=== PATIENT | female | born 1990 ===

== ENCOUNTER 2017-09-23 09:34 | Emergency (ER) | payer MEDICAID ==
[2017-09-23 10:10] LABS: BASO % 0.4 % (0.0-2.0); EOS # 0.1 K/uL (0.0-0.7); EOS % 0.9 % (0.0-4.0); HEMOGLOBIN 11.8 g/dL (11.0-16.0); LYMPH # 2.4 K/uL (1.0-4.3); LYMPH % 25.7 % (20.0-40.0); MEAN CELL VOLUME 82.7 fL (81.0-99.0); MEAN CORPUSCULAR HEMOGLOBIN 28.2 pg (27.0-31.0); MEAN CORPUSCULAR HGB CONC 34.1 g/dL (33.0-37.0); MEAN PLATELET VOLUME 8.4 fL (7.2-11.7); MONO # 0.6 K/uL (0.0-0.8); MONO % 6.1 % (0.0-10.0); NEUT # 6.3 K/uL (1.8-7.0); NEUT % 66.9 % (50.0-75.0); RBC 4.18 Mil/uL (3.80-5.20); WHITE BLOOD COUNT 9.4 K/uL (4.8-10.8)
[2017-09-23 10:15] LABS: SQUAMOUS EPITHIAL 15 /hpf (0-5); URINE BILIRUBIN NEGATIVE (NEGATIVE); URINE BLOOD 2+ (NEGATIVE); URINE CLARITY Hazy (Clear); URINE COLOR Yellow (YELLOW); URINE GLUCOSE (UA) NORMAL (Normal); URINE LEUKOCYTE ESTERASE TRACE Leu/uL (Negative); URINE PROTEIN NEGATIVE (NEGATIVE); URINE UROBILINOGEN NORMAL mg/dL (0.2-1.0)
[2017-09-23 10:24] LABS: ALB/GLOB RATIO 1.3 (1.0-2.1); ALBUMIN 4.6 g/dL (3.5-5.0); ALT/SGPT 26 U/L (9-52); AST/SGOT 33 U/L (14-36); BLOOD UREA NITROGEN 9 mg/dL (7-17); GFR AFRICAN-AMERICAN > 60; GFR NON-AFRICAN AMERICAN > 60
[2017-09-23 10:32] LABS: URINE AMORPHOUS SEDIMENT MODERATE /ul (<OCC); URINE BACTERIA OCC (<OCC)
--- NOTE | 2017-09-23 10:45 | C.PDOC ---
History Of Present Illness 26 year old female presents to the ED complaining of vaginal spotting upon awakening this morning. She reports she is 12 weeks and goes to the clinic for pre- care. Patient denies any abdominal pain, dysuria, or any other symptoms. She reports she had a prior miscarriage because of toxoplasmosis. Time Seen by Provider: 09/23/17 09:49 Chief Complaint (Nursing): Female Genitourinary History Per: Patient History/Exam Limitations: no limitations Onset/Duration Of Symptoms: Hrs Current Symptoms Are (Timing): Still Present Associated Symptoms: Urinary Symptoms (Vaginal spotting ). denies: Fever, Nausea, Vomiting, Diarrhea Abnormal Vaginal Bleeding: Yes Last Menstral Period: 07/05/17 Miscarriage: 1 Past Medical History Reviewed: Historical Data, Nursing Documentation, Vital Signs Vital Signs: Last Vital Signs Temp 98.6 F 09/23/17 12:24 Pulse 73 09/23/17 12:24 Resp 18 09/23/17 12:24 BP 101/68 09/23/17 12:24 Pulse Ox 98 09/23/17 12:24 Surgical History: No Surg Hx Family History: States: No Known Family Hx - Social History Hx Alcohol Use: No Hx Substance Use: No - Immunization History Hx Tetanus Toxoid Vaccination: No Hx Influenza Vaccination: No Hx Pneumococcal Vaccination: No Review Of Systems Except As Marked, All Systems Reviewed And Found Negative. Genitourinary: Positive for: Other (Vaginal spotting ) Physical Exam - Physical Exam Appears: Non-toxic, No Acute Distress Skin: Warm, Dry Head: Atraumatic, Normacephalic Eye(s): bilateral: Normal Inspection Nose: Normal Oral Mucosa: Moist Neck: Supple Chest: Symmetrical Cardiovascular: Rhythm Regular, No Murmur Respiratory: Normal Breath Sounds, No Rales, No Rhonchi, No Wheezing Gastrointestinal/Abdominal: Soft, No Tenderness, No Guarding, No Rebound Extremity: Bilateral: Atraumatic, Normal Color And Temperature, Normal ROM Neurological/Psych: Oriented x3, Normal Speech Gait: Steady ED Course And Treatment - Laboratory Results Result Diagrams: 09/23/17 10:06 09/23/17 10:06 O2 Sat by Pulse Oximetry: 100 (RA) Pulse Ox Interpretation: Normal - CT Scan/US US Transvaginal Other Rad Studies (CT/US): Read By Radiologist, Radiology Report Reviewed CT/US Interpretation: Accession No. : [id number]. Patient Name / ID : MONTSERRAT CONTEH / [id number]. Exam Date : 09/23/2017 10:55:08 ( Approved ). Study Comment : Sex / Age : F / 26Y. Creator : Immanuel Singh MD. Dictator : Immanuel Singh MD. Box Bender : Ambulance Driver : Immanuel Singh MD. Approver2 : Report Date : 09/23/2017 11:53:57. My Comment : . Date of service: 09/23/2017. PROCEDURE: OB Pelvic Ultrasound. HISTORY: vaginal bleeding. LMP: 07/06/2017 suggesting gestational age of 11 weeks 2 days. COMPARISON: None available. FINDINGS: UTERUS: Gestational sac: A single viable intrauterine gestation is identified within the gestational sac with a yolk sac identified as well as amniotic membrane. cardiac activity is recorded up to 132 beats per minute. Trace decidual hemorrhage is questioned 8 at the inferior margins of the decidual reaction. Note, the anatomy of the uterus is suspicious for a septate or possible bicornuate uterus with the appreciated toward the right- sided moiety/ endometrial cavity. age (Ultrasound estimated): 6 weeks 4 days based on mean crown-rump length of 0.73 cm. This is discrepant from the patient's LMP derived gestational age 11 weeks 2 days. Teresa-gestational hemorrhage: As above in gestational sac section. Date of delivery (Ultrasound estimated) : 05/17/2018. Uterus measures 7.4 x 4.0 x 6.9 cm. The uterus is anteverted and there is a small mid fundal hypoechoic mass toward the right a few mm separate from the subchorionic/myometrial interface measuring 1.0 x 1.1 x 0.8 cm compatible with a small fibroid. Partial shadowing seen posteriorly. The remainder the myometrium is unremarkable. CERVIX: Measures 3.2 cm. Internal cervical os appears closed. No cervical abnormality seen. RIGHT OVARY : Measures 4.1 x 2.0 x 3.0 cm. No mass lesion. Normal flow. 1.1 x 1.4 x 1.1 cm corpus luteum cyst is seen. LEFT OVARY: Measures 3.0 x 1.3 x 1.7 cm. No solid mass. Normal flow. FREE FLUID: None. OTHER FINDINGS: None. IMPRESSION: 1. A single viable intrauterine gestation is identified with average ultrasonic age of 6 weeks 4 days crit 11 weeks 2 days by dates, indicating discordance between dates. Minimal subchorionic hemorrhage is felt to be present. Clinical correlation follow-up ultrasound is advised. Further, the appears to be within the right side of the endometrial cavity of a septate or bicornuate uterus versus other variant. 2. 1.1 cm fibroid posterior uterine fundus as per above. 3. Right ovarian corpus luteum cyst. Medical Decision Making Medical Decision Making: Impression: Vaginal spotting Plan - Labs - Blood work - US transvaginal 6week 4 day ultrasound. Patient with spotting only. No abd. pain currently. patient will be discharged home to follow up with ob within 2 days Disposition Counseled Patient/Family Regarding: Studies Performed, Diagnosis, Need For Followup - Disposition Referrals: [facility] [Outside] Disposition: HOME/ ROUTINE Disposition Time: 12:03 Condition: STABLE Additional Instructions: follow up with your ob doctor or medical clinic within 2 days call to make an appointment take medications as prescribed return to ER if symptoms worsens or progress Instructions: Threatened Miscarriage (DC) Forms: [facility] (Romanian), General Discharge Instructions - Clinical Impression Clinical Impression: Threatened miscarriage - Scribe Statement The provider has reviewed the documentation as recorded by the Ezibmckinley Negrete All medical record entries made by the Ezibmckinley were at my direction and personally dictated by me. I have reviewed the chart and agree that the record accurately reflects my personal performance of the history, physical exam, medical decision making, and the department course for this patient. I have also personally directed, reviewed, and agree with the discharge instructions and disposition.
--- NOTE | 2017-09-23 11:55 | US ---
Date of service: 09/23/2017 PROCEDURE: OB Pelvic Ultrasound HISTORY: vaginal bleeding LMP: 07/06/2017 suggesting gestational age of 11 weeks 2 days. COMPARISON: None available. FINDINGS: UTERUS: Gestational sac: A single viable intrauterine gestation is identified within the gestational sac with a yolk sac identified as well as amniotic membrane. cardiac activity is recorded up to 132 beats per minute. Trace decidual hemorrhage is questioned 8 at the inferior margins of the decidual reaction. Note, the anatomy of the uterus is suspicious for a septate or possible bicornuate uterus with the appreciated toward the right-sided moiety/ endometrial cavity. age (Ultrasound estimated): 6 weeks 4 days based on mean crown-rump length of 0.73 cm. This is discrepant from the patient's LMP derived gestational age 11 weeks 2 days. Teresa-gestational hemorrhage: As above in gestational sac section. Date of delivery (Ultrasound estimated) : 05/17/2018. Uterus measures 7.4 x 4.0 x 6.9 cm. The uterus is anteverted and there is a small mid fundal hypoechoic mass toward the right a few mm separate from the subchorionic/myometrial interface measuring 1.0 x 1.1 x 0.8 cm compatible with a small fibroid. Partial shadowing seen posteriorly. The remainder the myometrium is unremarkable. CERVIX: Measures 3.2 cm. Internal cervical os appears closed. No cervical abnormality seen. RIGHT OVARY: Measures 4.1 x 2.0 x 3.0 cm. No mass lesion. Normal flow. 1.1 x 1.4 x 1.1 cm corpus luteum cyst is seen. LEFT OVARY: Measures 3.0 x 1.3 x 1.7 cm. No solid mass. Normal flow. FREE FLUID: None. OTHER FINDINGS: None. IMPRESSION: 1. A single viable intrauterine gestation is identified with average ultrasonic age of 6 weeks 4 days crit 11 weeks 2 days by dates, indicating discordance between dates. Minimal subchorionic hemorrhage is felt to be present. Clinical correlation follow-up ultrasound is advised. Further, the appears to be within the right side of the endometrial cavity of a septate or bicornuate uterus versus other variant. 2. 1.1 cm fibroid posterior uterine fundus as per above. 3. Right ovarian corpus luteum cyst.
[2017-09-23 12:25] VITALS: BP 101/68; PULSE 73; RESP 18; TEMP 98.6
[2017-09-23 12:53] VITALS: O2SAT 100
== END 2017-09-23 12:28 | disposition home or self-care (01) ==
LOC: C.ER 09:34
DX: O20.0 Threatened abortion (principal); Z3A.12 12 weeks gestation of pregnancy

== ENCOUNTER 2018-04-06 12:14 | Outpatient (CLI) | payer OTHER | END 2018-04-06 12:15 | disposition home or self-care (01) | LOC: C.LAB 12:14 | DX: Z34.93 Encounter for supervision of normal pregnancy, unspecified, third trimester (principal) ==

== ENCOUNTER 2018-05-03 22:53 | Emergency (ER) | payer OTHER ==
[2018-05-04 00:23] VITALS: BMI 28.6
--- NOTE | 2018-05-04 02:06 | OBHP ---
Datetime: 05/03/2018 23:19 IP Adm Impression: Term, intrauterine ; No Active Labor IP Admit Plan: Discharge home Admit Comment, IP Provider: Patient is a 27 year old at 38w2d YAO 05/15/18 by 12w3d US who pr esents to the unit for suspected rupture of membranes. Patient states that she started leaking fluid at approximately 9:30pm today. She also admits to feeling lower abdominal pressure and back pain that is constant in nature. Patient also states that the baby isnt moving as much for the past 1-2 hours. She denies VB. Last had intercourse earlier today. Issues: Anemia - on Iron 1 tab PO BID and Vitamin C OB Hx: . 2015 SAB at 16 weeks, requiring D+C x 2 2. 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 - 07/05/17 [place] 12 x monthly x 3 days History of ovarian cysts Denies history of fibroids, abnormal pap smears Allergies: NKDA Medications: Vitamin C, Iron 1 tab BID, PNV Medical History: Denies Surgical History: D+C x 2 Social History: Denies alcohol, tobacco, drug use; not employed, Family History: Mother - age 47, healthy; Father - age 57, healthy PE: see above A/P: 27 year old at 38w2d who presents with suspected rupture of membranes -Membranes intact, Not in labor -NST reactive, Category I tracing -Patient admits to feeling movement -Yeast infection: will treat with Diflucan 150mg PO Q72H x 2 -Patient to return tomorrow morning for NST/BPP after breakfast Plan discussed with Dr Brandon Neely DO PGY-2 Attending Note: patient seen and evaluated by me with the Resident. I performed BPP personally. Mj hermosillo is clinically stable. - plan as above. FHR - Baseline A Provider: 135 Membranes, Provider: Intact Contraction Comments Provider: q5-6 min Comments, ACOG Physical Exam: Vital signs BP 135/85 HR 97 Gen: AAOx3, NAD Abdomen: Soft, gravid Extremities: No clubbing, cyanosis, edema Bedside sonogram: BPP 8/8 ((+) FBM; (+)FM; (+) tone; (+) cardiac activity); JOSE 16cm Pool Provider: Negative Nitrazine Provider: Negative IP Hx Assessment: The History has been Reviewed and is Current Vital Signs Provider: Reviewed; Within Normal Limits IP Chief Complaint: Suspected ruptured membranes NICHD Variability Prov Fetus A: Moderate 6-25bpm NICHD Accel Fetus A IP Provider: 15X15 FHR Category Provider Fetus A: Category I NICHD Decel Fetus A IP Provider: None Dilatation, Provider: closed Effacement, Provider: thick Station, Provider: high
[2018-05-04 04:52] VITALS: BP 140/74; PULSE 72; RESP 20; TEMP 97; O2SAT 100
== END 2018-05-04 00:40 | disposition home or self-care (01) ==
LOC: C.EROB 22:53
DX: O47.1 False labor at or after 37 completed weeks of gestation (principal); Z3A.38 38 weeks gestation of pregnancy

== ENCOUNTER 2018-05-04 10:10 | Emergency (ER) | payer OTHER ==
[2018-05-04 11:21] VITALS: BMI 26.8
--- NOTE | 2018-05-04 12:10 | US ---
Date of service: 05/04/2018 PROCEDURE: OB Pelvic Ultrasound HISTORY: BPP for decreased movement COMPARISON: None available. FINDINGS: UTERUS: Single live intrauterine fetus in cephalic presentation. Placenta is anterior. BPD: 9.40 cm corresponding to 38 weeks and 2 days of gestational age. HC: 33.06 cm corresponding to 37 weeks and 5 days of gestational age. AC: 33.00 cm corresponding to 36 weeks and 6 days of gestational age. FL: 7.24 cm corresponding to 37 weeks and 0 day of gestational age. age (Ultrasound estimated): 37 weeks and 3 days Date of delivery (Ultrasound estimated) : Heart rate: 126 bpm. Teresa-gestational hemorrhage: None. Placenta is anterior. CERVIX: Long and closed. No cervical abnormality seen. FREE FLUID: None. OTHER FINDINGS: biophysical profile: breathin body movements: 2 Tone: 2 Amniotic Fluid: 2 Total score: 8 IMPRESSION: 1. biophysical profile score: 8/ 8. 2. Single live intrauterine fetus in cephalic presentation with mean gestational age of 37 weeks and 3 days. Placenta is anterior without evidence for placenta previa. Please note this is a limited OB ultrasound performed on an emergent basis. Clinical follow-up is advised.
--- NOTE | 2018-05-04 15:08 | OBHP ---
Datetime: 05/04/2018 13:36 IP Adm Impression: Term, intrauterine ; No Active Labor IP Admit Plan: Discharge home Admit Comment, IP Provider: Patient is a 27 year old at 38w4d who presents for a follow up. On 05/03/18, she came in for suspected rupture of membranes - not found. Patient also reported decreas ed FM. Limited bedside sono performed: JOSE 16 cm; BPS 8/8. She was told to return today for a biophys ical profile testing. She was also prescribed Diflucan for a suspected yeast infection. She denies montano ving any contractions but admits to having a sensation of light pressure on her abdomen. She denies a ny leakage of fluid or any vaginal bleeding. She states that she can feel movements. She denies fevers, chills, shortness of breath, chest pain, nausea, vomiting, diarrhea, or urinary symptoms. PMHx: denies PSHx: D_C in 2016 Allergies: NKDA OB history: Spontaneous at 16 weeks in 2016 (s/p D_C) Gynecologic history: her last menstrual period was 07/07/17, menarche was age 13, and her periods n ormally last for 3 days. Social history: She denies smoking, use of recreational drugs, or alcohol use during her . She currently lives with her ; currently is unemployed. Family history: denies Assessment: 27 year old female 38w4d presenting with a follow up visit for decreased movement. N ST reactive/Category 1 tracing Plan: - BPP (BPS 8/8) - Continue vitamins - Continue Diflucan 150 mg PO Q72H x2 - Plan discussed with Dr. Brandon Sutton, S-III Pankaj Razo, PGY-1 Attending NOte: patient seen and evaluated by me with the Resident and medical student I agree wi th the above as documented. - keep appointment, 05/07 - Keep ultrasoundBPP appontment 05/08/17 - reviewed S/S labor Pelvic Type - PN: Not Done Extremities - PN: Normal Abdomen - PN: Normal Back - PN: Not Done Breast - PN: Not Done Lungs - PN: Normal Heart - PN: Normal Thyroid - PN: Not Done Neurologic - PN: Not Done HEENT - PN: Normal General - PN: Normal Comments, ACOG Physical Exam: General: Patient appears to be in no acute distress Cardiac: RRR, S1, S2, no murmurs, rubs, or gallops Pulmonary: CTA b/l GI: Tenderness to palpation in lower quadrant, no rebound tenderness, normoactive bowel sounds LE: No pedal edema, no calf tenderness b/l Vital Signs Provider: Reviewed; Within Normal Limits Dilatation, Provider: deferred Genitourinary Exam: Not Done DTRs - PN: Not Done
[2018-05-04 17:25] VITALS: BP 115/70; PULSE 95
== END 2018-05-04 13:23 | disposition home or self-care (01) ==
LOC: C.EROB 10:10
DX: O36.8130 Decreased fetal movements, third trimester, not applicable or unspecified (principal); Z3A.38 38 weeks gestation of pregnancy

== ENCOUNTER 2018-05-21 19:05 | Inpatient (IN) | payer MEDICAID, OTHER ==
[2018-05-21 19:39] VITALS: BMI 28.6
[2018-05-21] MEDS ORDERED: Lactated Ringer's 1,000 ML IV ONE (19:56)
[2018-05-21 20:50] LABS: BASO % 0.1 % (0.0-2.0); EOS # 0.1 K/uL (0.0-0.7); EOS % 0.7 % (0.0-4.0); HEMOGLOBIN 10.7 g/dL (11.0-16.0); LYMPH # 2.3 K/uL (1.0-4.3); LYMPH % 30.2 % (20.0-40.0); MEAN CELL VOLUME 80.1 fL (81.0-99.0); MEAN CORPUSCULAR HEMOGLOBIN 25.7 pg (27.0-31.0); MEAN CORPUSCULAR HGB CONC 32.1 g/dL (33.0-37.0); MEAN PLATELET VOLUME 10.3 fL (7.2-11.7); MONO # 0.4 K/uL (0.0-0.8); MONO % 5.1 % (0.0-10.0); NEUT # 4.8 K/uL (1.8-7.0); NEUT % 63.9 % (50.0-75.0); NRBC % 0.1 % (0.0-2.0); RBC 4.15 Mil/uL (3.80-5.20); RED CELL DISTRIBUTION WIDTH 16.3 % (11.5-14.5); WHITE BLOOD COUNT 7.5 K/uL (4.8-10.8)
[2018-05-21 20:51] LABS: SQUAMOUS EPITHIAL 17 /hpf (0-5); URINE BACTERIA RARE (<OCC); URINE BILIRUBIN NEGATIVE (NEGATIVE); URINE BLOOD NEGATIVE (NEGATIVE); URINE CLARITY Hazy (Clear); URINE COLOR Straw (YELLOW); URINE GLUCOSE (UA) NORMAL (Normal); URINE LEUKOCYTE ESTERASE 1+ Leu/uL (Negative); URINE PROTEIN NEGATIVE (NEGATIVE); URINE UROBILINOGEN NORMAL mg/dL (0.2-1.0)
[2018-05-21 21:00] LABS: ALB/GLOB RATIO 1.2 (1.0-2.1); ALBUMIN 3.3 g/dL (3.5-5.0); AST/SGOT 22 U/L (14-36); BLOOD UREA NITROGEN 12 mg/dL (7-17); CALCIUM 8.8 mg/dl (8.6-10.4); GFR NON-AFRICAN AMERICAN > 60; URIC ACID 5.9 mg/dL (2.2-7.5)
[2018-05-21 21:01] LABS: INR 0.9; PROTHROMBIN TIME 10.1 SECONDS (9.7-12.2)
[2018-05-21 21:04] LABS: ALT/SGPT < 6 U/L (9-52)
--- NOTE | 2018-05-21 21:16 | OBHP ---
Datetime: 05/21/2018 19:22 IP Adm Impression: Postterm, intrauterine ; No Active Labor; Intact Membranes IP Admit Plan: Admit to unit; Initiate labor induction protocol Admit Comment, IP Provider: 27 y/o at 40.6 weeks with YAO 05/15/18 and LMP 07/05/17 presents f or a scheduled induction of labor. Patient denies vaginal bleeding, vaginal leakage, abnormal dischar ge, and pain right now. She mentioned some leakage of clear fluid from her vagina after she urinated a week ago, but it has resolved. Patient feels movement but no contractions. Denies chest pain, shortness of breath, nausea, vomiting, diarrhea, fevers, chills. 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 Menarche age 13 yo, monthly cycles lastin g for 3 days PSHx: D_C 2015 SocHx: Denies tobacco, EtOH and illicit drugs. She currently lives with her and is unemplo yed. FHx: denies Meds: Iron and vitamin C Allergies: NKDA Vitals and physical exam: see above Pertinent BP 145/102 second reading A/P: 27 year old female 40.6 weeks presenting for IOL - admit for labor - NPO - CBC, CMP, T_S, UA - anesthesia consult as needed for epidural - PIH labs ordered due to elevated BP on admission - f/u PT, PTT, fibrinogen, uric acid, LDH, live r enzymes (ordered in CMP) NST Reactive Ocassional contractions Unfavorable cervix Will place Cervidil for cervical ripening Hope for vaginal delivery case discussed with Dr. Brett Hamilton PGY1 Pt dseen and examined with Dr. Hamilton and all of her findings and POC fully reviewed and agree. Pelvic Type - PN: Adequate Extremities - PN: Normal Abdomen - PN: Normal Back - PN: Not Done Breast - PN: Not Done Lungs - PN: Normal Heart - PN: Normal General - PN: Normal Presentation-Admit: Vertex FHR - Baseline A Provider: 130 Membranes, Provider: Intact Contraction Comments Provider: Ocassional Gestation - Est Wks by US: 40.6 Nitrazine Provider: Negative EGA AdmitDate IP: 40.6 Vital Signs Provider: Reviewed Vital Signs Provider Details: HTN 145/102 second reading IP Chief Complaint: Signs/Symptoms Gestational HTN; Scheduled induction of labor NICHD Variability Prov Fetus A: Moderate 6-25bpm NICHD Accel Fetus A IP Provider: 10X10 FHR Category Provider Fetus A: Category I NICHD Decel Fetus A IP Provider: None Dilatation, Provider: 0 Effacement, Provider: 30 Station, Provider: -3 DTRs - PN: Normal
[2018-05-21] MEDS: Lactated Ringer's 1,000 ML IV SCH (21:30)
--- NOTE | 2018-05-21 21:32 | OBADHP ---
Datetime: 05/21/2018 19:22 Admit Comment, IP Provider: 27 y/o at 40.6 weeks with YAO 05/15/18 and LMP 07/05/17 presents f or a scheduled induction of labor. Patient denies vaginal bleeding, vaginal leakage, abnormal dischar ge, and pain right now. She mentioned some leakage of clear fluid from her vagina after she urinated a week ago, but it has resolved. Patient feels movement but no contractions. Denies chest pain, shortness of breath, nausea, vomiting, diarrhea, fevers, chills. 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 Menarche age 13 yo, monthly cycles lastin g for 3 days PSHx: D_C 2015 SocHx: Denies tobacco, EtOH and illicit drugs. She currently lives with her and is unemplo yed. FHx: denies Meds: Iron and vitamin C Allergies: NKDA Vitals and physical exam: see above Pertinent BP 145/102 second reading A/P: 27 year old female 40.6 weeks presenting for IOL - admit for labor - NPO - CBC, CMP, T_S, UA - anesthesia consult as needed for epidural - PIH labs ordered due to elevated BP on admission - f/u PT, PTT, fibrinogen, uric acid, LDH, live r enzymes (ordered in CMP) NST Reactive Ocassional contractions Unfavorable cervix Will place Cervidil for cervical ripening Hope for vaginal delivery case discussed with Dr. Brett Hamilton PGY1 Pt dseen and examined with Dr. Hamilton and all of her findings and POC fully reviewed and agree. Pelvic Type - PN: Adequate Extremities - PN: Normal Abdomen - PN: Normal Back - PN: Not Done Breast - PN: Not Done Lungs - PN: Normal Heart - PN: Normal General - PN: Normal Presentation-Admit: Vertex FHR - Baseline A Provider: 130 Membranes, Provider: Intact Contraction Comments Provider: Ocassional Gestation - Est Wks by US: 40.6 Nitrazine Provider: Negative Vital Signs Provider: Reviewed Vital Signs Provider Details: HTN 145/102 second reading IP Chief Complaint: Signs/Symptoms Gestational HTN; Scheduled induction of labor NICHD Variability Prov Fetus A: Moderate 6-25bpm NICHD Accel Fetus A IP Provider: 10X10 FHR Category Provider Fetus A: Category I NICHD Decel Fetus A IP Provider: None Dilatation, Provider: 0 Effacement, Provider: 30 Station, Provider: -3 DTRs - PN: Normal EGA AdmitDate IP: 40.6 IP Adm Impression: Postterm, intrauterine ; No Active Labor; Intact Membranes IP Admit Plan: Admit to unit; Initiate labor induction protocol Datetime: 05/04/2018 13:36 Thyroid - PN: Not Done Neurologic - PN: Not Done HEENT - PN: Normal Comments, ACOG Physical Exam: General: Patient appears to be in no acute distress Cardiac: RRR, S1, S2, no murmurs, rubs, or gallops Pulmonary: CTA b/l GI: Tenderness to palpation in lower quadrant, no rebound tenderness, normoactive bowel sounds LE: No pedal edema, no calf tenderness b/l Genitourinary Exam: Not Done Datetime: 05/03/2018 23:19 Pool Provider: Negative IP Hx Assessment: The History has been Reviewed and is Current
[2018-05-21 21:48] LABS: CREATININE, RANDOM URINE 16.9 mg/dL
[2018-05-22] MEDS: Lactated Ringer's 1,000 ML IV SCH ×2 (05:00→22:36)
[2018-05-22] MEDS ORDERED: Fentanyl/Bupivacaine HCl 250 ML EPI ONE (06:41)
[2018-05-22] MEDS ORDERED: Oxytocin 30 UNIT in NS 500 ml 30 UNITS/500 ML BAG IV SCH (08:00)
[2018-05-22] MEDS ORDERED: Oxytocin 30 UNIT in NS 500 ml 30 UNITS/500 ML BAG IV ONE ×2 (08:01→14:42)
[2018-05-22] MEDS ORDERED: Magnesium Sulfate 4 gm/100 ml 4 GM/100 ML BAG IVPB ONE (11:11)
[2018-05-22] MEDS ORDERED: Magnesium Sulfate 20 gm 20 GM/500 ML BAG IV SCH (11:30)
--- NOTE | 2018-05-22 12:49 | OBPN ---
Datetime: 05/22/2018 12:15 IP Progress Impression: Reassuring heart rate IP Informed Consent Obtain: Vaginal Delivery IP Procedures: Intrauterine Pressure Catheter; Scalp Electrode; Sterile Vag Exam IP Progress Plan: Continue present management; Induction; Anticipate Vaginal Delivery Contraction Comments Provider: Q 3-5 minutes FHR - Baseline A Provider: 120 Gestation - Est Wks by US: 41.0 Presentation-Admit: Vertex IP Progress Note Comment: Pt seen and examined Minimal cervical change IUPC, ISL placed with ease and MVU's only at 75 in 10 minutes Will increase Pitocin to an adequate labor pattern tracing reassuring BP's elevated and pt asymptomatic However, Prot/Cr ration in urine 1.3 and considered preclamptic Started on Magnesium Sulfate prophylaxis and 4 gram bolus given and 2 Grams per hour Total IV fluids 125 mls/hr Started on Labetolol 200 mg po BID and first dose given. Hope for a vaginal delivery Vital Signs Provider: Reviewed Vital Signs Provider Details: BP improved after Left sided position and Labetolol medication NICHD Accel Fetus A IP Provider: 10X10 FHR Category Provider Fetus A: Category I NICHD Variability Prov Fetus A: Moderate 6-25bpm Dilatation, Provider: 3 Effacement, Provider: 90 Station, Provider: -3 NICHD Decel Fetus A IP Provider: None (Annotations: Data stored by CPN on behalf of user) Datetime: 05/22/2018 08:09 Membranes, Provider: Ruptured Amniotic Fluid Color, Provider: Clear Datetime: 05/21/2018 19:22 Nitrazine Provider: Negative Datetime: 05/03/2018 23:19 Pool Provider: Negative
[2018-05-22] MEDS ORDERED: cefOXitin IV 2 gm in Dextrose 2 GM/50 ML BAG IVPB ONE (17:55)
[2018-05-22] MEDS ORDERED: Sodium Citrate/Citric Acid 15 ml Sol PO ONE (17:55)
[2018-05-22] MEDS ORDERED: Lactated Ringer's 1,000 ML IV ONE (17:55)
[2018-05-22] MEDS ORDERED: Sodium Citrate/Citric Acid 15 ml Sol ONE (17:56)
[2018-05-22] MEDS ORDERED: Oxytocin 10 Units/ml Inj ONE ×3 (17:57→19:42)
[2018-05-22] MEDS ORDERED: Sodium Bicarbonate (8.4%) 50 mEq Vial ONE (18:13)
[2018-05-22] MEDS ORDERED: Lidocaine 2% MPF (5 ml) Inj ONE (18:16)
[2018-05-22] MEDS ORDERED: DiphenhydrAMINE 50 mg/ml Inj IVP PRN (18:24)
[2018-05-22] MEDS ORDERED: Naloxone 0.4 mg/ml Inj (Adult) IVP PRN (18:24)
--- NOTE | 2018-05-22 18:54 | OBPN ---
Datetime: 05/22/2018 15:45 IP Progress Impression: Reassuring heart rate IP Informed Consent Obtain: Vaginal Delivery IP Procedures: Sterile Vag Exam Membranes, Provider: Ruptured Contraction Comments Provider: Irregular FHR - Baseline A Provider: 130 IP Progress Note Comment: Pt seen and examined No change in dilatation or descent at this time FHT's reassuring. No S or S or Infection Pitocin at 20 Mu/Min with irregular contractions D/W patient possibility of a C/S and she request to continue trying for a vaginal delivery Pitocin was stopped at 1515 and she was positioned in [employer] Will reasses in 1 hour NICHD Accel Fetus A IP Provider: 10X10 FHR Category Provider Fetus A: Category I NICHD Variability Prov Fetus A: Moderate 6-25bpm Dilatation, Provider: 3 Effacement, Provider: 90 Station, Provider: -3
[2018-05-22] MEDS ORDERED: Morphine 1 mg/ml preservative-free Inj(Duramorph) ONE (19:19)
[2018-05-22] MEDS ORDERED: Oxycodone/Acetaminophen 5/325 mg Tab PO PRN (20:28)
--- NOTE | 2018-05-22 20:49 | OBPN ---
Datetime: 05/22/2018 18:00 IP Progress Impression Other: Preeclampsia IP Progress Impression: Arrest of dilatation/descent; Reassuring heart rate IP Informed Consent Obtain: Section Delivery IP Procedures: Sterile Vag Exam IP Progress Plan: Deliver- Section Membranes, Provider: Ruptured Contraction Comments Provider: Q 5 mins FHR - Baseline A Provider: 130 Gestation - Est Wks by US: 41.0 Presentation-Admit: Vertex IP Progress Note Comment: Pt seen and examined again Pitocin was re-strted at 1600 at 10 mU/min and contractions started slowly and about Q 5 mins at 1 730 with Pit at 16m/u/min No cervical change and head still high Pt then decided to said that she was told that her uterus was divided in the middle / ?Bicornuate/ and that her baby was on the right side Failure to Progress and Arrest of Descent was diagnosed Situation was fully discussed with the patient and baby's father and recommended a C/S delivery at this time The procedure, risks and possible complications including increased risk of loosing her uterus wer e fully discussed and they both verbalized understanding and requested to proceed. Consents were sign ed and OR and Anesthesia aware. Pre-op orders were done and will proceed as soon as ready Vital Signs Provider: Reviewed NICHD Accel Fetus A IP Provider: 10X10 FHR Category Provider Fetus A: Category I NICHD Variability Prov Fetus A: Moderate 6-25bpm Dilatation, Provider: 4 Effacement, Provider: 90 Station, Provider: -3 NICHD Decel Fetus A IP Provider: None
--- NOTE | 2018-05-22 21:05 | OBDS ---
DELIVERY PERSONNEL Delivery Doctor: Baldev West DO Anesthesiologist: Dr Leach MATERNAL INFORMATION Delivery Anesthesia: Epidural Estimated Blood Loss (ml): 1000 Provider Comments: Primary LTC C/S with delivery of a female from ROT position. Apgars 9_9 a nd BW 7/lbs 8oz. Cord blodd and cord pH obtained and sent Placenta delivered with 3 vessel cord and cultured and sent to Pathology Prolonged ROM but no S_Symptoms of chorio PreEclampsia and on Magnesium Sulfate/Labetolol Uterine Atony that responded to increased Pitocin IV and IM, Hemabate, Cytotec. EBL 1000 mls Pt and both tolerated the procedure well and left the OR in S_S condition Dr. Laureano assisted throught the procedure, from begining to end. Dr. Mcdaniel attended the . LABOR SUMMARY EDC: 05/15/2018 00:00 No. Babies in Womb: 1 Attempted: No Labor Anesthesia: Epidural LABOR INFORMATION Reason for Induction: Postterm Onset of Labor: 05/22/2018 00:18 Cervical Ripening Agents: Cervidil Oxytocin: Induction Group B Beta Strep: Negative (Annotations: 04/16/2018) Steroids Given: None Reason Steroids Not Administered: Not Applicable MEMBRANES Membranes Rupture Method: Spontaneous Rupture of Membranes: 05/22/2018 00:18 Length of Rupture (hrs): 19.02 Amniotic Fluid Color: Clear Amniotic Fluid Amount: Moderate Amniotic Fluid Odor: Normal STAGES OF LABOR Stage 3 hrs: 0 Stage 3 min: 2 Total Time in Labor hrs: 19 Total Time in Labor min: 3 CSECTION DELIVERY Primary Indication: Arrest of Descent Other Primary Indication: Failure to Progress Secondary Indication: Other Other Secondary Indication: arrest of dilatation CSection Urgency: Non Elective CSection Incidence: Primary Labor: Labor Elective: Nonelective CSection Incision: Lower Uterine Transverse BABY A INFORMATION Infant Delivery Date/Time: 05/22/2018 19:19 Method of Delivery: Born in Route : No : N/A Forceps: N/A Vacuum Extraction: N/A Shoulder Dystocia : No SHOULDER DYSTOCIA BABY A Delivery Date/Time: 05/22/2018 19:19 PRESENTATION/POSITION BABY A Presentation: Cephalic Cephalic Presentation: Vertex Breech Presentation: N/A PLACENTA INFORMATION BABY A Placenta Delivery Time : 05/22/2018 19:21 Placenta Method of Delivery: Manual Removal Placenta Status: Delivered SCORES BABY A Heart Rate 1 min: >100 bpm Resp Effort 1 min: Good Cry Reflex Irritability 1 min: Cough or Sneeze or Pulls Away Muscle Tone 1 min: Active Motion Color 1 min: Body [place], Extremities Blue SCORE 1 MIN: 9 Heart Rate 5 min: >100 bpm Resp Effort 5 min: Good Cry Reflex Irritability 5 min: Cough or Sneeze or Pulls Away Muscle Tone 5 min: Active Motion Color 5 min: Body [place], Extremities Blue SCORE 5 MIN: 9 INFORMATION BABY A Gestational Age at Delivery: 41.0 Gestational Status: Term Outcome : Liveborn Infant Condition : Stable Sex: Female IDENTIFICATION/MEDS BABY A ID Band Number: [id number] ID Band Location: Left Leg; Left Arm Sensor Applied: Yes Sensor Number: [id number] Sensor Location : Cord Clamp WEIGHT/LENGTH BABY A Birthweight (gms): 3390 Infant Weight (lb): 7 Weight (oz): 8 Length Inches: 18.50 (Annotations: Data stored by [facility] on behalf of user) Infant Length cms: 47.0 CORD INFORMATION BABY A Nuchal Cord : N/A Cord Blood Taken: Yes Infant Suction: Mouth; Nose ASSESSMENT BABY A Complications: None Physical Findings at Delivery: Other Physical Findings Other: SMALL CHIN, Infant Respirations: Appears Normal Ware Cleaner/ALS Called : No Infant Care By: DR MCDANIEL Transferred To: [facility]
[2018-05-23] MEDS: Oxycodone/Acetaminophen 5/325 mg Tab PO PRN (04:50)
[2018-05-23 07:31] LABS: MEAN CELL VOLUME 79.4 fL (81.0-99.0); MEAN CORPUSCULAR HEMOGLOBIN 25.4 pg (27.0-31.0); MEAN CORPUSCULAR HGB CONC 31.9 g/dL (33.0-37.0); MEAN PLATELET VOLUME 9.8 fL (7.2-11.7); RBC 2.55 Mil/uL (3.80-5.20); RED CELL DISTRIBUTION WIDTH 15.9 % (11.5-14.5); WHITE BLOOD COUNT 15.3 K/uL (4.8-10.8)
[2018-05-23 07:36] LABS: HEMOGLOBIN 6.5 g/dL (11.0-16.0)
[2018-05-23] MEDS: Prenatal Multivit/Folic Acid/Iron Tab PO SCH (09:40)
[2018-05-23] MEDS: Simethicone 80 mg Chewtab PO SCH ×4 (09:42→22:30)
[2018-05-23] MEDS ORDERED: DiphenhydrAMINE 50 mg/ml Inj ONE (13:26)
--- NOTE | 2018-05-23 20:35 | OBPPN ---
Datetime: 05/23/2018 07:56 PP Pain Prov: Within normal limits PP Nausea Prov: Denies PP Flatus Prov: No PP BM Prov: No PP Breasts Prov: Not Done PP Heart Prov: Abnormal PP Lungs Prov: Normal PP Abdomen/Uterus Prov: Normal PP Lochia Prov: Normal PP Vulva/Perineum Prov: Not Done PP CVA Tenderness Prov: Not Done PP Extremities Prov: Normal PP C/S Incision Prov: Normal PP Progress Prov: Normal PP Comments Phys Exam Prov: Gen: Pale, WDWN, NAD Neuro: AxO x 3, No FND CV: Tachycardic, S1/S2 present, no m/r/g Pulm: CTA b/l no wheezing, rales, rhonchi GI: Soft, nondistended. Mild TTP around incision site. Incision site dressing in place. C/D/I Extremites: No peripheral edema PP Impression Prov: Normal progression PP Plan Prov: Continue present management; consult PP Impression Other Prov: Anemia PP Progress Note Prov: Pt seen and examineed at bedside this am. No acute events overnight. Pt repor ts she has not ate breakfast yet this morning. She has drank _1L water overnight. She has not walked around yet. She reports attemping , however denies milk production. She reports abdomina l pain, specifically around incision site that has been controlled with percocet. Current pain is min imal. She has not had a bowel movement or urinated. She reports flatus. She denies fevers, chills, he adache, chest pain, palpitations, shortness of breath, nausea, vomiting, diarrhea, dysuria. Admits to feeling dizzie and lightheaded when standing. O: Vitals: T: 97.8 BP: 110/71 P: 98 SpO2: 98% on RA RR: 18 PE as noted Labs: 15.3>6.5/20.2<163 (05/23/2018) 7.5>10.7/33.3<218 (05/21/2018) Blood Type: O+ Assessment: 27 y/o PPD1 s/p LTCS in the setting of arrest of descent and dilation. 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 Administer 2u pRBC. Administer benadryl prn for transfusion reaction - start iron supplementation, continue multivitamins - pain controlled with percocet. Continue analgesics including ibuprofen/percocet - encourage aggressive hydration, ambulation and breast feeding - consult placed. Appreciate recs - Monitor closely for signs of acute blood loss - Continue to monitor incision site - Continue antihypertensives with holding parameters. BP has been controlled - Continue routine post-operative care Case discussed with Dr. Brett Guo PGY1 Pt seen and examined with Dr. Nielson and agreed with all of his findings and POC IP PP Procedures: Transfusion IP PP Procedures Comments: 2u pRBC Vital Signs Provider Details PP: Tachycardic
[2018-05-23] MEDS: Lactated Ringer's 1,000 ML IV SCH (22:35)
[2018-05-24 00:38] LABS: HEMOGLOBIN 8.4 g/dL (11.0-16.0)
[2018-05-24 08:09] LABS: HEMOGLOBIN 8.7 g/dL (11.0-16.0); MEAN CORPUSCULAR HEMOGLOBIN 27.7 pg (27.0-31.0); MEAN CORPUSCULAR HGB CONC 33.7 g/dL (33.0-37.0); MEAN PLATELET VOLUME 9.5 fL (7.2-11.7); RBC 3.15 Mil/uL (3.80-5.20); WHITE BLOOD COUNT 15.2 K/uL (4.8-10.8)
[2018-05-24 08:14] LABS: MEAN CELL VOLUME 82.3 fL (81.0-99.0)
[2018-05-24] MEDS: Prenatal Multivit/Folic Acid/Iron Tab PO SCH (08:59)
[2018-05-24] MEDS: Simethicone 80 mg Chewtab PO SCH ×4 (09:00→21:52)
[2018-05-24] MEDS: Oxycodone/Acetaminophen 5/325 mg Tab PO PRN ×2 (13:25→21:56)
--- NOTE | 2018-05-24 17:54 | OBPPN ---
Datetime: 05/24/2018 11:11 PP Pain Prov: Within normal limits PP Nausea Prov: Denies PP Flatus Prov: Yes PP BM Prov: Yes PP Breasts Prov: Not Done PP Heart Prov: Normal PP Lungs Prov: Normal PP Abdomen/Uterus Prov: Normal PP Lochia Prov: Normal PP Vulva/Perineum Prov: Not Done PP CVA Tenderness Prov: Normal PP Extremities Prov: Normal PP C/S Incision Prov: Normal PP Progress Prov: Normal PP Comments Phys Exam Prov: Gen: Pale, WDWN, NAD Neuro: AxO x 3, No FND CV: Tachycardic, S1/S2 present, no m/r/g Pulm: CTA b/l no wheezing, rales, rhonchi Abd: Soft, nondistended. TTP around incision site. Incision well approximated with good. C/D/I . Fundus at 1 FB above umbilicus Extremites: 1+ edema PP Impression Prov: Normal progression PP Plan Prov: Continue present management PP Progress Note Prov: Subjective: Pt seen and examined at bedside this am. No acute events overnight. Per pt, abdominal pain is 3/10 controlled with percocet. She is ambulating in her room, tolerating her diet, passing flatus and had bowel movement yesterday. She drank about 4 jugs of water. She reports scant vaginal bleeidng. She i s exclusively. She denies fevers, chills, headache, dizziness, chest pain, palpitations , shortness of breath, nausea, vomiting, diarrhea, dysuria, hematuria. Objective: Vitals: T: 98 BP: 121/72 P: 98 SpO2: 100% RA PE As noted Labs: 15.2>8.7/25.9<148 (05/24/18 0800). 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 Continue analgesics including ibuprofen/percocet - continue laxatives - encourage IS, hydration, ambulation, breast feeding - Monitor closely for signs of blood loss - Continue to monitor incision site - Continue antihypertensives with holding parameters - Continue routine post-operative care Case discussed with Dr. Brandon Guo PGY1 Attending Note: patient seen, evaluated and examined by me with the Resident. I agree with the abo ve as documented IP PP Procedures: Transfusion IP PP Procedures Comments: s/ Vital Signs Provider PP: Reviewed Vital Signs Provider Details PP: s/p 2u pRBC (05/23/18)
[2018-05-25] MEDS: Simethicone 80 mg Chewtab PO SCH ×2 (10:23→14:03)
[2018-05-25] MEDS: Prenatal Multivit/Folic Acid/Iron Tab PO SCH (10:24)
--- NOTE | 2018-05-25 12:10 | OBPPN ---
Datetime: 05/25/2018 09:05 PP Pain Prov: Within normal limits PP Nausea Prov: Denies PP Flatus Prov: Yes PP BM Prov: Yes PP Breasts Prov: Not Done PP Heart Prov: Normal PP Lungs Prov: Normal PP Abdomen/Uterus Prov: Normal PP Lochia Prov: Not Done PP Vulva/Perineum Prov: Not Done PP CVA Tenderness Prov: Not Done PP Extremities Prov: Normal PP C/S Incision Prov: Normal PP Progress Prov: Normal PP Comments Phys Exam Prov: pitting edema b/l +1 uterus fundus at level of umbilicus PP Impression Prov: Normal progression PP Plan Prov: Continue present management; Discharge PP Progress Note Prov: 27F status post day #3 was examined this morning. Patient was resting comfortably her baby from the R breast. Patient acknowledged that she was ambulating in the room and experienced a bowel movement. Transverse abdominal incision was checked. There was no bleeding, erythema, or discharge appreciat ed. Patient did have pitting edema b/l. Pt was given labetalol 200mg last night, todays BP was 112/69. vitals and PE - see above Labs: CBC: H/H on 05/24 (8.7/ 25.9), Hgb dropped to 6.5 on 05/23 A/P: 27F post C section day 3 -uterine atony - resolved: EBL 1L 2/2 hemorrhage, was given 2 unit of PRBC (see labs) -continue encouraging ambulation -continue with bowel regimen and iron supplement -continue with -f/u with dr in 10 days for staple removal -patient agrees to discuss contraception at 6 week follow up, [facility] margarita triana -Plan to discharge today case discussed with Dr. Amol Wayne MS3 Leighann Hamilton PGY1 Pt seen at bedside. agree with above A/P by resident physician. Pt reports mild headache. Tylenol x 1 dose given. Denies blury vision, RUQ pain. BPs stable on labetalol. Pt is s/p MgSo4. (+)BM DC home, f/u in clinic for BP check/staple removal IP PP Procedures: None Vital Signs Provider PP: Reviewed; Within Normal Limits
[2018-05-25 21:34] VITALS: BP 120/68; PULSE 72; RESP 18; TEMP 97.8; O2SAT 99
== END 2018-05-25 17:32 | disposition home or self-care (01) | DRG 540 ==
LOC: C.EROB 19:05 → C.4D 19:39 → C.4M 05-23 02:20
PROVIDERS: ADMIT Obstetrics & Gynecology; ATTEND Obstetrics & Gynecology
PROC: 10D00Z1 Extraction of Products of Conception, Low, Open Approach (ICD-10-PCS; principal; 2018-05-22)
DX: O13.4 Gestational [pregnancy-induced] hypertension without significant proteinuria, complicating childbirth (principal); O99.02 Anemia complicating childbirth; O62.0 Primary inadequate contractions; O62.1 Secondary uterine inertia; Z3A.40 40 weeks gestation of pregnancy; Z37.0 Single live birth